=== PATIENT | male | born 1950 | race Caucasian/White ===

== ENCOUNTER 2016-06-15 12:22 | Inpatient (IN) | payer BC ==
[~2016-06-15] VITALS: Ht 177.8 cm; Wt 85.8 kg
--- NOTE | ~2016-06-15 | CO ---
ADMIT: 06/15/2016 RM/LOC: 310 [facility] MR#: [id number] [address] [address] [address]ER [address] [place] [address] Consultation Report SEX: M AGE: 65 : 1950 DATE OF CONSULTATION: 06/15/2016 ATTENDING PHYSICIAN: Jassi Moise CONSULTING PHYSICIAN: Kal Hester MD HISTORY OF PRESENT ILLNESS: The patient is a 65-year-old male who had noticed having some black stools over the last 2 or 3 days, felt a little lightheaded, dizzy and weak, was seeing Dr. Moise in outpatient clinic, had lab work done, was found to be quite anemic. The patient states he has problems with sinus headaches and takes p.r.n. nonsteroidals, but certainly not every day. He is not on any type of antacid coverage. He does have problems what he describes as phlegm, has sometimes little trouble swallowing and then will vomit, but did not mention that this happened over the weekend either. PAST MEDICAL HISTORY: Includes history of BPH. 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 His leg was plated for fracture and had a pneumothorax. He has also had a tonsillectomy in the past. Has problems with sinus headaches, had a colonoscopy in 2011 that was unremarkable. SOCIAL HISTORY: He is . He is a nondrinker and nonsmoker. FAMILY HISTORY: Dad with colon cancer. Family history of coronary artery disease, hypertension. MEDICATIONS: Include: 1. Claritin. 2. Flomax, which he has stopped taking recently. Takes: 1. Flonase. 2. Multivitamin. 3. His chart says he takes omeprazole, but he denied taking antacid, he might have not understood the question. ALLERGIES: HE HAS NO KNOWN DRUG ALLERGIES. ADMIT: 06/15/2016 RM/LOC: 310 [facility] MR#: [id number] [id number] [facility] [address] [place], [place] [address] [place] [address] Consultation Report SEX: M AGE: 65 : 1950 REVIEW OF SYSTEMS: Has occasional headaches. No cough, no shortness of breath. Denies abdominal pain. He has had the black stools per HPI. No extremity complaints. No hematologic, neurologic or psychiatric issues. PHYSICAL EXAMINATION: VITAL SIGNS: He is afebrile. Vitals stable. HEART: Regular. LUNGS: Clear. ABDOMEN: Soft, nondistended, nontender with no peripheral edema. No focal neurologic deficits. ASSESSMENT AND PLAN: The patient is a 65-year-old with melena and anemia. Plan is for upper endoscopy evaluation. Risks and benefits were discussed. Kal Hester MD/ inge JOB #: [id number] CC: Jassi Moise, Attending Physician Jassi Moise, Family Physician
--- NOTE | 2016-06-18 09:32 | HP ---
ADMIT: 06/15/2016 RM/LOC: 310 [facility] MR#: [id number] [address] [address] [address] LEVI [address] [place] [address] History and Physical SEX: M AGE: 65 : 1950 DATE OF SERVICE: 06/15/2016 HISTORY OF PRESENT ILLNESS: Salinas Levi was admitted to intensive care unit after being seen in our office. The patient presented with symptoms of acute upper GI bleeding with melanotic stools and some presyncopal symptoms being his main current symptoms. No severe abdominal pain. A little bit of crampy lower abdominal pain. No nausea, vomiting, or fever with this. These symptoms started 48 hours ago. He first presented to urgent care in [place], was referred to the emergency room. He chose to go to the Emergency Room in [place]. He described using occasional aspirin, but usually no more than one episode a week. Does not use NSAIDs. No other obvious triggers for this. He has some history of chronic gastroesophageal reflux for which he has been on omeprazole in the past. Over the last couple of years, he has tapered down to about one every other day, but has never been off it completely. Emergency Room in [place], he was found to have a hemoglobin 8.6, white count of 12,000, and platelets 245,000. Elevated BUN at 54. Chemistry panel otherwise unremarkable. His INR was 1.1. His occult stools were positive. He had a black stool on the exam when they did rectal. He was released to home with followup today, at which time, he is feeling dizzy when he is up and his hemoglobin in our office was decreased to 6.9. It is recommended he be admitted to acute care. I have discussed case with Dr. Hester, who will consult for EGD. PAST MEDICAL HISTORY: Pertinent as stated. He has never been hospitalized for gastrointestinal bleeding before. He has had prior colonoscopy and EGD in 2012. Colonoscopy for screening purposes was normal. The EGD was done because of some symptoms, which suggested reflux and he had mild esophagitis and mild gastritis at that time. He was treated, at that time, with omeprazole and as noted he has tapered off it, but never completely stopped it. He had a history of a splenectomy done for trauma in the distant past, history of tonsillectomy, history of allergic rhinitis, BPH, migraines, rheumatic fever, and colon polyps. His last colonoscopy was clean. SOCIAL HISTORY: He is . His accompanies him. Drinks two cups of coffee per day. He does not smoke. Does not drink alcohol. FAMILY HISTORY: Positive in his mother for anxiety, colon cancer, and depression. In his father, myocardial infarction, coronary artery disease, hypertension, osteoarthritis, prostate cancer, and positive in his father also for colon cancer and his brother for prostate cancer. MEDICATIONS: 1. Claritin once a day. 2. Flomax 0.4 mg daily. 3. Flonase spray. 4. Multivitamin. 5. Omeprazole 20 mg daily. ALLERGIES: NONE. ADMIT: 06/15/2016 RM/LOC: 310 [facility] MR#: [id number] [address] [place] [id number] [facility] [address] [place] [address] History and Physical SEX: M AGE: 65 : 1950 REVIEW OF SYSTEMS: ENT: No acute complaints. EYES: No vision changes. RESPIRATORY: No shortness of breath or cough. CARDIOVASCULAR: Yesterday and today, he has had a chest pressure in association with his other symptoms. Once again, some lower abdominal cramping, but no other pain. GASTROINTESTINAL: As above. GENITOURINARY: No complaints. HEMATOLOGIC: No history of prior bleeding. No history of prior blood clots. NEURO: Chronic recurrent headaches unchanged. No focal neurologic symptoms. PSYCH: No psychologic symptoms at this time. MUSCLE, BONE, AND JOINT: Negative. SKIN: No rashes. PHYSICAL EXAMINATION: GENERAL: This is a 65-year-old male. He is uncomfortable and alert. VITAL SIGNS: 98/66 with orthostatic change into the 80s systolic, pulse 88, temp 98.8, weight 190 pounds, and O2 saturation 99% on room air. ENT: TMs are clear. Oral mucous membranes a little dry. No oral lesions appreciated. No nasal discharge. EYES: Pupils equal and reactive. Sclerae are clear. NECK: No masses. No thyromegaly. LUNGS: Clear throughout. Normal respiratory effort. HEART: Regular rhythm without murmur. ABDOMEN: Flat, nontender to palpation. No masses. No guarding. No organomegaly. No rebound. RECTAL: Not repeated. He had a rectal exam in the Emergency Room in [place] yesterday. GENITALIA: Unremarkable limited exam. SKIN: No rashes. ADMIT: 06/15/2016 RM/LOC: 310 [facility] MR#: [id number] [address] [address] [place] [address] History and Physical SEX: M AGE: 65 : 1950 EXTREMITIES: Upper extremities grossly normal. Lower extremities also grossly normal. No significant swelling in his lower extremities. NEURO: Grossly intact. PSYCH: He is calm and alert. IMPRESSION: 1. Acute upper gastrointestinal bleed with melanotic stools. 2. Acute blood loss anemia. 3. Prior splenectomy secondary to trauma. PLAN: As outlined above, we will give fluid and blood resuscitation. IV Protonix. Monitor counts and Surgical consult as discussed. Jassi Moise MD/ inge JOB #: [id number] CC: Jassi Moise, Attending Physician Jassi Moise, Family Physician
[2016-06-20] MEDS ORDERED: CLARITIN DPS10 MG PO (10:26)
[2016-06-20] MEDS ORDERED: PROTONIX40 MG PO (10:26)
[2016-06-20] MEDS ORDERED: B-12500 MCG PO (10:27)
[2016-06-20] MEDS ORDERED: THERA1 EACH PO (10:27)
[2016-06-20] MEDS ORDERED: FLOMAX DPS0.4 MG PO (10:27)
[2016-06-20] MEDS ORDERED: CARAFATE DPS1 GM PO (10:28)
--- NOTE | 2016-06-25 10:23 | OR ---
ADMIT: 06/15/2016 RM/LOC: 310 [facility] MR#: [id number] [address] [address] [address]ER [address] [place] [address] Operative/Delivery Room Report SEX: M AGE: 65 : 1950 SURGERY DATE: 06/16/2016 SURGEON: Kal Hester MD PRE-PROCEDURE DIAGNOSIS: Melena, anemia. POSTPROCEDURE DIAGNOSES: 1. Small type 1 sliding hiatal hernia. 2. Nonobstructive distal esophageal ring. 3. Possible fundic extrinsic mass and/or portal hypertension. 4. Mild antral gastritis, normal duodenum. PROCEDURE: EGD. INDICATIONS: The patient is a 65-year-old, again with anemia, melena, who presents for upper endoscopy evaluation. DESCRIPTION OF PROCEDURE: The patient was taken to the endoscopy suite. IV sedation was given. He was placed in left lateral decubitus position. A bite- block was placed in the patient's mouth. The gastroscope was introduced down the oropharynx, down the esophagus, into the stomach, through the pylorus, into the duodenum. The duodenal bulb, second and third portions of the duodenum had no old or new blood. No ulcers. No inflammation. No masses. On carefully examining the stomach, there were some mild changes of antral gastritis, but no active bleeding. No old blood. On retroflexion view, there was about a 1-2 cm type 1 sliding hiatal hernia. Right up near the fundus of the stomach, there appeared to be almost kind of an extrinsic possible mass and/or portal hypertension, it gave the look like it could possibly lead some dilated veins possibly. Looking at this very carefully, I saw no evidence of old blood or any active bleeding. The distal esophagus had a nonobstructive distal esophageal ring, but no ulcers, no bleeding source. The patient tolerated the procedure without difficulty. Postprocedure, CT scans can be ordered due to what appeared to be possibly extrinsically pushing on the fundus of the stomach. Kal Hester MD/ inge JOB #: [id number] CC: Jassi Moise, Attending Physician Jassi Moise, Family Physician
--- NOTE | 2016-06-27 09:21 | DS ---
ADMIT: 06/15/2016 RM/LOC: 525 [facility] MR#: [id number] [address] [address] [address] L[address]I [address] [place] [address] General Discharge Summary SEX: M AGE: 65 : 1950 ADMISSION DATE: 06/15/2016 DISCHARGE DATE: 06/18/2016 FINAL DIAGNOSES: 1. Acute melanotic stools. 2. Acute blood loss anemia secondary to acute melanotic stools requiring blood transfusion. 3. Mild antral gastritis by EGD. 4. 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 NARRATIVE: Salinas Levi was admitted to Acute Care on June 15. He was first seen in the office for admission. See that history and physical in the electronic record for more complete details. He was presyncopal with melanotic stools, and a hemoglobin level in our office of 6.9. He was seen on Tuesday. Symptoms actually started over the weekend. At which time, he presented to [facility] and then was referred to the emergency room. He chose to go to the emergency room in [place] where he was found to have a hemoglobin yesterday of 8.6. INR of 1.1. Occult stools were positive. He was released to home with followup today. Now, he is feeling dizzy and has noted hemoglobin decreased to 6.9, it was recommended he be admitted to acute care, and we obtained consultation with Surgery for EGD. PAST MEDICAL HISTORY: Pertinent for him never having this sort of episode before. He had had prior colonoscopy and EGD in 2011. The colonoscopy is for screening purposes and was normal. The EGD was done because of some symptoms, which suggested reflux, and he had mild esophagitis and gastritis at that time. He was treated at that time with the omeprazole, and he has since tapered off, but never completely stopped it. He had remote splenectomy done for trauma in the distant past. He drinks 2 cups of coffee per day. Does not smoke. Does not drink alcohol and rarely uses any NSAIDs or aspirin. He does have headaches, but does not use those medications for the headaches. PHYSICAL EXAMINATION: GENERAL: His exam revealed his blood pressure to be 98/66 with orthostatic change into the 80 systolic, pulse 88, temp 98.8, weight 190, and O2 saturation 99%. CARDIORESPIRATORY: Bixby to be unremarkable. ABDOMEN: Nontender. RECTAL: I did not do a rectal exam. He had had one in the emergency room in [place] yesterday. They described black stools. Further studies in this hospital included multiple hemoglobin levels. The initial one in the hospital was 6.2. He was transfused a total of 4 units during his hospital stay, and his hemoglobin on the day he was dismissed was 8.6. His white count and platelets were unremarkable during his hospital stay. His INR was 1.04. Chloride was slightly elevated, otherwise electrolytes were unremarkable. His BUN was 43 on admit, though it was 54 in the emergency room in [place] that was probably reflective of his gastrointestinal bleed. His creatinine was 0.8. Iron level was 126. Iron binding capacity 246. Blood type is O positive. Antibody screen negative. ADMIT: 06/15/2016 RM/LOC: 525 [facility] MR#: [id number] [address] [place] [id number] SALINAS LEVI [facility] [place] [address] General Discharge Summary SEX: M AGE: 65 : 1950 CT scan of the abdomen was concerning for some type of a mass in the left upper quadrant. I refer you to the full report. Subsequent MRI of the same area suggested probable splenules in the left upper abdomen, and this patient previously had a splenectomy from trauma. See Dr. Hester's operative note in the chart. FINAL DIAGNOSIS: Small sliding hiatal hernia type 1, nonobstructive distal esophageal ring, mild antral gastritis and his possible extrinsic fundal mass leading to the CT scan and MRI. Notable is that no active bleeding was identified and no biopsies were taken. The patient was admitted to acute care and as noted was transfused 4 units of blood over the next 48 hours. He was started on IV Protonix. Initially, surgery consult was obtained. He was felt to be a little volume deplete so was given a bolus of IV fluids immediately upon admission. With this approach, he did seem to respond to medical management. On 06/16, he denied any more black colored stools. Diet and activity were increased. On the 17 of June, we stopped his IV fluids and his Protonix drip. On the , he was seen by my partner in my absence and was dismissed that day. There did not seem to be any further active bleeding. There were no plans by Dr. Hester to do a colonoscopy in-house, but I did recommend to Salinas that he have one done as an outpatient. DISMISSAL MEDICATIONS: Protonix 40 mg every morning plus home medications: 1. Tamsulosin. 2. Claritin. 3. Multivitamin. 4. Vitamin B12. 5. Carafate 1 g q.i.d. for 30 days. CBC at office followup in roughly a week. PROGNOSIS: Bixby to be good. Obviously, avoid aspirin and NSAIDs in the interval as well. Jassi Moise MD/ inge JOB #: [id number] CC: Jassi Moise MD, Attending Physician Jassi Moise MD, Family Physician Kla Hester MD
== END 2016-06-18 11:30 | disposition home or self-care (01) | DRG 378 ==
LOC: 3ICU 12:22 → 5MS 06-17 14:41
PROVIDERS: ADMIT Family Medicine
PROC: 0DJ08ZZ Inspection of Upper Intestinal Tract, Via Natural or Artificial Opening Endoscopic (ICD-10-PCS; principal; 2016-06-16)
PROC: 30233N1 Transfusion of Nonautologous Red Blood Cells into Peripheral Vein, Percutaneous Approach (ICD-10-PCS; 2016-06-16)
DX: K92.1 Melena (principal); K76.6 Portal hypertension; D62 Acute posthemorrhagic anemia; K29.70 Gastritis, unspecified, without bleeding; K21.9 Gastro-esophageal reflux disease without esophagitis; N40.0 Benign prostatic hyperplasia without lower urinary tract symptoms; R51 Headache; K44.9 Diaphragmatic hernia without obstruction or gangrene; K22.8 Other specified diseases of esophagus; K92.9 Disease of digestive system, unspecified; Z90.81 Acquired absence of spleen; Z82.49 Family history of ischemic heart disease and other diseases of the circulatory system